=== PATIENT | female | born 1975 | race African-American/Black ===

== ENCOUNTER → 2017-11-04 | Outpatient (CLI) | payer OTHER ==
[~2017-11-04] MED LIST: HYDROCHLOROTHIA25 M2 PO; HYDROCODONE-ACE15 ML PO; NIFEDIPINE ER30 M1 PO; NIFEDIPINE10 MG PO; REGLAN 5 MG TAB5 MG PO
--- NOTE | ~2017-11-04 | EKG ---
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: Sal LEYVA : 1975 Requested By: Sharee Fields Order Number: [id number] MD: Jarvis Palacios Measurements Intervals [place] Rate: 76 P: 50 [place]: 185 QRS: 22 QRSD: 83 T: 10 QT: 366 QTc: 412 Interpretive Statements Sinus rhythm Borderline T wave abnormalities No previous ECG available for comparison Electronically Signed On 11-05-2017 8:04:55 [employer] by Jarvis Palacios [email or web address] <ELECTRONICALLY SIGNED> By: Jarvis Palacios MD, [facility] 11/05/17 [id number] Jarvis Palacios MD, FACC /EPI
[2017-11-04 11:41] LABS: ABSOLUTE NEUTROPHILS 3.5 thou/uL (1.4-8.2); BASOPHILS 1.2 % (0.0-2.0); EOSINOPHILS 2.2 % (0.0-3.0); HEMATOCRIT 39.3 % (37.0-47.0); HEMOGLOBIN 13.7 gm/dL (12.0-15.0); MCH 30.3 pg (26.0-34.0); MCHC 34.9 g/dL (28.0-37.0); MCV 86.7 fL (80.0-100.0); MONOCYTES 6.7 % (1.0-8.0); PLATELET COUNT 471 thou/uL (150-400); POLYS 48.9 % (36.0-66.0); RBC 4.53 mil/uL (4.20-5.00); RDW 13.3 % (10.5-14.5); WBC 7.1 thou/uL (4.0-11.0)
[2017-11-04 11:52] LABS: ALBUMIN 3.9 g/dL (3.4-5.0); CREATININE 0.9 mg/dL (0.6-1.0); POTASSIUM 3.4 mmol/L (3.5-5.1); TOTAL BILIRUBIN 0.5 mg/dL (<0.1-1.0)
== END ==
LOC: CV 10:59
PROVIDERS: Surgery
DX: Z01.818 Encounter for other preprocedural examination (principal)